=== PATIENT | male | born 1970 | race Caucasian/White ===

== ENCOUNTER 2016-07-22 19:21 | Observation (INO) | payer SELFPAY ==
[2016-07-22] MEDS ORDERED: ONDANSETRON 4 MG TAB.RAPDIS PO ONE (20:40)
--- NOTE | 2016-07-22 20:42 | ER Document Report ---
ED Medical Screen (RME) - General Chief Complaint: Abdominal Pain Stated Complaint: ABDOMINAL PAIN/GROIN PAIN Notes: 46-year-old male that comes emergency department for chief complaint of sharp pain in his mid abdomen to upper abdomen, started earlier today, states occasionally it radiates to his lower abdomen, denies nausea or vomiting, denies diarrhea, reports normal bowel movement prior to arrival. Occasional alcohol, no surgeries, no daily medications. No fever. TRAVEL OUTSIDE OF THE [place] IN LAST 30 DAYS: No - Related Data Allergies/Adverse Reactions: No Known Allergies Allergy (Verified 07/22/16 20:35) Past Medical History - Social History Chew tobacco use (# tins/day): No Frequency of alcohol use: Occasional Drug Abuse: None Renal/ Medical History: Denies: Hx Peritoneal Dialysis - Immunizations Hx Diphtheria, Pertussis, Tetanus Vaccination: Yes Physical Exam - Vital signs Vitals: Temp Pulse Resp BP Pulse Ox 98.6 F 92 18 97/66 L 97 07/22/16 20:29 07/22/16 20:29 07/22/16 20:29 07/22/16 20:29 07/22/16 20:29 - Abdominal Tenderness: Tender - Mild generalized tenderness, worse in the mid to upper abdomen/epigastric area Course - Vital Signs Vital signs: Temp Pulse Resp BP Pulse Ox 98.6 F 92 18 97/66 L 97 07/22/16 20:29 07/22/16 20:29 07/22/16 20:29 07/22/16 20:29 07/22/16 20:29
[2016-07-22 21:05] LABS: ABSOLUTE BASOPHILS # (AUTO) 0.1 10^3/uL (0.0-0.2); ABSOLUTE LYMPHOCYTES (AUTO) 0.8 10^3/uL (0.5-4.7); ABSOLUTE MONOCYTES (AUTO) 1.1 10^3/uL (0.1-1.4); ABSOLUTE NEUT (AUTO) 12.9 10^3/uL (1.7-8.2); BASOPHILS % (AUTO) 0.4 % (0-2); EOSINOPHILS % (AUTO) 0.1 % (0-6); HEMOGLOBIN 14.4 g/dL (13.5-17.0); HGB HCT DIFFERENCE 0.2; LYMPHOCYTES % (AUTO) 5.4 % (13-45); MEAN CORPUSCULAR HEMOGLOBIN 30.3 pg (27.0-33.4); MEAN CORPUSCULAR HGB CONC 33.4 g/dL (32.0-36.0); MEAN CORPUSCULAR VOLUME 91 fl (80-97); MONOCYTES % (AUTO) 7.1 % (3-13); RED BLOOD COUNT 4.75 10^6/uL (4.35-5.55); RED CELL DISTRIBUTION WIDTH 13.7 % (11.5-14.0); WHITE BLOOD COUNT 14.8 10^3/uL (4.0-10.5)
[2016-07-22 21:22] LABS: ALANINE AMINOTRANSFERASE 33 U/L (21-72); ALBUMIN 4.9 g/dL (3.5-5.0); ALKALINE PHOSPHATASE 59 U/L (38-126); ANION GAP 13 (5-19); ASPARTATE AMINO TRANSFERASE 23 U/L (17-59); BLOOD UREA NITROGEN 18 mg/dL (7-20); CALCIUM 10.1 mg/dL (8.4-10.2); CARBON DIOXIDE 22 mmol/L (22-30); CHLORIDE 105 mmol/L (98-107); CREATININE RESULT 0.87 mg/dL (0.52-1.25); GLUCOSE 117 mg/dL (75-110); LIPASE 49.4 U/L (23-300); POTASSIUM 4.4 mmol/L (3.6-5.0); SODIUM 139.9 mmol/L (137-145); TOTAL PROTEIN 7.4 g/dL (6.3-8.2)
[2016-07-22 21:35] LABS: APPEARANCE,URINE SLIGHTLY-CLOUDY; BILIRUBIN,URINE NEGATIVE (NEGATIVE); GLUCOSE, URINE NEGATIVE (NEGATIVE); KETONES,URINE 80 mg/dL (NEGATIVE); LEUKOCYTE ESTERASE,URINE NEGATIVE (NEGATIVE); NITRITE,URINE NEGATIVE (NEGATIVE); PROTEIN,URINE NEGATIVE (NEGATIVE); URINE SPECIFIC GRAVITY 1.029; UROBILINOGEN,URINE NEGATIVE mg/dL (<2.0)
[2016-07-23] MEDS ORDERED: FENTANYL CITRATE INJ/PF 100 MCG/2 ML AMPUL IV ONE ×2 (02:09→06:54)
[2016-07-23] MEDS ORDERED: NORMAL SALINE 1000 ML 1,000 ML IV ONE ×2 (02:09→07:03)
[2016-07-23] MEDS ORDERED: ONDANSETRON HCL INJ/PF 4 MG/2 ML SDV IV ONE (02:10)
--- NOTE | 2016-07-23 02:16 | ER Document Report ---
ED General - General Chief Complaint: Abdominal Pain Stated Complaint: ABDOMINAL PAIN/GROIN PAIN Notes: Patient is a 46 year male who presents with complaint of abdominal pain that started yesterday morning. He says the pain was mostly central, but now is in the right lower quadrant. Some nausea. No vomiting and no diarrhea. No history of abdominal surgeries. No other complaints this time. TRAVEL OUTSIDE OF THE [place] IN LAST 30 DAYS: No - Related Data Allergies/Adverse Reactions: No Known Allergies Allergy (Verified 07/22/16 20:35) Past Medical History - Social History Smoking Status: Current Every Day Smoker Chew tobacco use (# tins/day): No Frequency of alcohol use: Occasional Drug Abuse: None Family History: Reviewed & Not Pertinent Patient has suicidal ideation: No Patient has homicidal ideation: No Renal/ Medical History: Denies: Hx Peritoneal Dialysis - Immunizations Hx Diphtheria, Pertussis, Tetanus Vaccination: Yes Review of Systems - Review of Systems Notes: My Normal Review Basic REVIEW OF SYSTEMS: CONSTITUTIONAL : Denies fever, chills, or sweats. Denies recent illness. EENT: Denies eye, ear, throat, or mouth pain or symptoms. Denies nasal or sinus congestion. CARDIOVASCULAR: Denies chest pain. RESPIRATORY: Denies cough, cold, or chest congestion. Denies shortness of breath, difficulty breathing, or wheezing. GASTROINTESTINAL: Lower abdominal pain. Denies vomiting, or diarrhea. Denies constipation. GENITOURINARY: Denies difficulty urinating, painful urination, burning, frequency, or blood in urine. MUSCULOSKELETAL: Denies neck or back pain or joint pain or swelling. SKIN: Denies rash or skin lesions. NEUROLOGICAL: Denies altered mental status or loss of consciousness. Denies headache. Denies weakness or paralysis or loss of use of either side. Denies problems with gait or speech. Denies sensory or motor loss. ALL OTHER SYSTEMS REVIEWED AND NEGATIVE. Physical Exam - Vital signs Vitals: Temp Pulse Resp BP Pulse Ox 98.6 F 92 18 97/66 L 97 07/22/16 20:29 07/22/16 20:29 07/22/16 20:29 07/22/16 20:29 07/22/16 20:29 - Notes Notes: General Appearance: Well nourished, alert, cooperative, no acute distress, mild to moderate obvious discomfort. Vitals: reviewed, See vital signs table. Head: no swelling or tenderness to the head Eyes: PERRL, EOMI, Conjuctiva clear Mouth: No decreasd moisture Throat: No tonsillar inflammation, No airway obstruction, No lymphadenopathy Neck: Supple, no neck tenderness, No thyromegaly Lungs: No wheezing, No rales, No rhonci, No accessory muscle use, good air exchange bilaterally. Heart: Normal rate, Regular rythm, No murmur, no rub Abdomen: Normal BS, soft, No rigidity, moderate right lower quadrant abdominal tenderness to palpation, No guarding, no rebound, no abdominal masses, no organomegaly Genital: No swelling or tenderness to palpation of the genitalia. No palpable inguinal hernia. Extremities: strength 5/5 in all extremities, good pulses in all extremities, no swelling or tenderness in the extremities, no edema. Skin: warm, dry, appropriate color, no rash Neuro: speech clear, oriented x 3, normal affect, responds appropriately to questions. Course - Re-evaluation Re-evalutation: 07/23/16 03:36 CT scan does show evidence appendicitis. This would make sense with his clinical presentation. I have called Dr. العراقي, general surgeon. He is currently in surgery but will call me back as soon as he is out. Patient will be started an antibiotic. Patient's abdomen is still currently soft but tender in the right lower quadrant. No evidence of perforation per exam or scan. 07/23/16 05:09 Reevaluation patient continues to rest comfortably. His abnormalities be soft and nonrigid. He continues to have pain only in the right lower quadrant. 07/23/16 06:53 I did reevaluate the patient. He said he started to have a slight increase in pain. Will give a little more pain medicine. He otherwise looks well. His abdomen is soft. He still has some pain in the right lower quadrant. Remainder of abdomen is nontender. - Vital Signs Vital signs: Temp Pulse Resp BP Pulse Ox 98.6 F 55 L 17 111/58 L 95 07/22/16 20:29 07/23/16 04:20 07/23/16 07:38 07/23/16 07:38 07/23/16 07:38 - Laboratory Result Diagrams: 07/22/16 20:45 07/22/16 20:45 Laboratory results interpreted by me: 02/07/0707/22/16 07/22/16 20:45 20:45 20:45 WBC 14.8 H Seg Neutrophils % 87.0 H Lymphocytes % 5.4 L Absolute Neutrophils 12.9 H Glucose 117 H Urine Ketones 80 H - Transfer of Care Notes: 07/23/16 07:55 I can contact with Dr. Garay, general surgeon. He is in the morning general surgeon simulation engineer. He said he will come down and evaluate the patient. Patient was checked out to him by Dr. العراقي. Patient continues to do well without any further complaints at this time. Discharge - Discharge Clinical Impression: Appendicitis Qualifiers: Appendicitis type: acute appendicitis Acute appendicitis type: with localized peritonitis Qualified Code(s): K35.3 - Acute appendicitis with localized peritonitis Condition: Stable Disposition: ADMITTED INPATIENT Admitting Provider: Surgicalist Unit Admitted: OR
[2016-07-23] MEDS ORDERED: ERTAPENEM SODIUM INJ 1 GM VIAL IV ONE (03:35)
[2016-07-23] MEDS ORDERED: RINGERS SOLUTION,LACTATED 1,000 ML IV PRN ×2 (06:24→10:44)
[2016-07-23] MEDS ORDERED: BUPIVACAINE HCL 0.25 % INJ/PF (2.5 MG/1 ML) 30 ML VIAL ONE (08:19)
--- NOTE | 2016-07-23 08:20 | PDOC H&P ---
History of Present Illness History of Present Illness: PRAKASH YU is a 46 year old male In usual state of good health until yesterday morning when he experienced mid abdominal pain which localized to the right lower quadrant. Pain has progressively worsened. He denies any nausea or vomiting denies any prior history of this sort of pain. Denies any fevers or chills. He denies any recent the weight loss nor bowel habit changes nor blood per rectum. Past Medical History Medical History: None Past Surgical History Past Surgical History: Reports: None Social History Smoking Status: Current Every Day Smoker Frequency of Alcohol Use: Rare Family History Family History: Reviewed & Not Pertinent Parental Family History Reviewed: No Children Family History Reviewed: No Sibling(s) Family History Reviewed.: No Medication/Allergy Home Medications: No Home Medications 0 mg PO DAILY 10/22/11 Allergies/Adverse Reactions: No Known Allergies Allergy (Verified 07/22/16 20:35) Physical Exam Vital Signs: Temp Pulse Resp BP Pulse Ox 98.6 F 55 L 17 111/58 L 95 07/22/16 20:29 07/23/16 04:20 07/23/16 07:38 07/23/16 07:38 07/23/16 07:38 Intake & Output 07/22/16 07/23/16 07/24/16 06:59 06:59 06:59 Weight 73.5 kg General appearance: PRESENT: no acute distress Neck exam: PRESENT: other - Supple and nontender with no abnormal masses Respiratory exam: PRESENT: clear to auscultation corrie Cardiovascular exam: PRESENT: RRR GI/Abdominal exam: PRESENT: other - Soft, nondistended, focal tenderness to palpation the right lower quadrant with guarding and rebound Extremities exam: PRESENT: other - No swelling and no tenderness Neurological exam: PRESENT: alert, awake, oriented to person, oriented to place , oriented to time, oriented to situation Psychiatric exam: PRESENT: appropriate affect Skin exam: PRESENT: warm Results Laboratory Results: 07/22/16 20:45 07/22/16 20:45 07/22/16 07/22/16 07/22/16 20:45 20:45 20:45 WBC 14.8 H RBC 4.75 Hgb 14.4 Hct 43.0 MCV 91 MCH 30.3 MCHC 33.4 RDW 13.7 Plt Count 178 Seg Neutrophils % 87.0 H Lymphocytes % 5.4 L Monocytes % 7.1 Eosinophils % 0.1 Basophils % 0.4 Absolute Neutrophils 12.9 H Absolute Lymphocytes 0.8 Absolute Monocytes 1.1 Absolute Eosinophils 0.0 Absolute Basophils 0.1 Sodium 139.9 Potassium 4.4 Chloride 105 Carbon Dioxide 22 Anion Gap 13 BUN 18 Creatinine 0.87 Est GFR ( Amer) > 60 Est GFR (Non-Af Amer) > 60 Glucose 117 H Calcium 10.1 Total Bilirubin 1.0 AST 23 ALT 33 Alkaline Phosphatase 59 Total Protein 7.4 Albumin 4.9 Lipase 49.4 Urine Color YELLOW Urine Appearance SLIGHTLY-CLOUDY Urine pH 5.0 Ur Specific [place] 1.029 Urine Protein NEGATIVE Urine Glucose (UA) NEGATIVE Urine Ketones 80 H Urine Blood NEGATIVE Urine Nitrite NEGATIVE Ur Leukocyte Esterase NEGATIVE Urine WBC (Auto) 2 Urine RBC (Auto) 1 Impressions: Acute Abdomen Series 07/22/16 20:39 IMPRESSION: NO RADIOGRAPHIC EVIDENCE FOR ACUTE ABDOMINAL DISEASE. Abdomen/Pelvis CT 07/23/16 02:09 IMPRESSION: There is dilatation the appendix measuring 12.7 mm. There is thickening of the alberto of the appendix. The possibility of appendicitis should be considered. Clinical correlation is recommended. Other findings as noted above Assessment & Plan - Diagnosis (1) Mass of both adrenal glands Is this a current diagnosis for this admission?: YesPlan: Bilateral adrenal prominence on CT scan. Will obtain MRI of the his adrenal glands after he has recovered from his appendicitis. (2) Appendicitis Qualifiers: Appendicitis type: acute appendicitis Acute appendicitis type: with localized peritonitis Qualified Code(s): K35.3 - Acute appendicitis with localized peritonitis Is this a current diagnosis for this admission?: YesPlan: CT scan history and physical exam CONSISTENT with acute appendicitis. Plan laparoscopic appendectomy possible open appendectomy. I have discussed with the patient the risk and benefits of the procedure including risk of stump leak , mistaken diagnosis, adjacent organ injury, bleeding and infection. Patient understands and agrees to proceed.
[2016-07-23] MEDS ORDERED: FENTANYL CITRATE INJ/PF 250 MCG/5 ML AMPULE ONE (08:32)
[2016-07-23] MEDS ORDERED: PROPOFOL INJ 200 MG/20 ML VIAL IV ONE (08:33)
[2016-07-23] MEDS ORDERED: ACETAMINOPHEN 100 ML IV ONE (08:33)
[2016-07-23] MEDS ORDERED: HYDROMORPHONE HCL INJ/PF 2 MG/ML AMPULE ONE (08:33)
[2016-07-23] MEDS ORDERED: DEXMEDETOMIDINE INJ 80 MCG/20 ML VIAL IV ONE (08:33)
[2016-07-23] MEDS ORDERED: EPHEDRINE SULFATE INJ 50 MG/1 ML AMPULE ONE (08:33)
[2016-07-23] MEDS ORDERED: MIDAZOLAM 2 MG/2 ML INJ ONE (08:33)
[2016-07-23] MEDS ORDERED: MEPERIDINE HCL/PF INJ 25 MG/1 ML DISP.SYRIN IV PRN (08:42)
[2016-07-23] MEDS ORDERED: MORPHINE SULFATE 10 MG/ML INJ IV PRN ×2 (08:42→10:39)
[2016-07-23] MEDS ORDERED: ONDANSETRON HCL INJ/PF 4 MG/2 ML SDV IV PRN ×2 (08:42→10:39)
[2016-07-23] MEDS ORDERED: FENTANYL CITRATE INJ/PF 100 MCG/2 ML AMPUL IV PRN ×3 (08:42)
[2016-07-23] MEDS ORDERED: PROMETHAZINE HCL INJ 25 MG/1 ML VIAL IV PRN ×2 (08:42)
[2016-07-23] MEDS ORDERED: DIPHENHYDRAMINE HCL 50 MG/ML VIAL IV PRN (08:42)
--- NOTE | 2016-07-23 10:39 | Operative Report ---
Operative Report DATE OF SURGERY: 07/23/16 PREOPERATIVE DIAGNOSIS: Appendicitis POSTOPERATIVE DIAGNOSIS: Appendicitis OPERATION: Laparoscopic appendectomy SURGEON: NATALIA HIRSCH ANESTHESIA: GA TISSUE REMOVED OR ALTERED: Appendix COMPLICATIONS: None ESTIMATED BLOOD LOSS: minimal INTRAOPERATIVE FINDINGS: Inflamed appendix located in the retro-peritoneal location and the body and tip firmly adhered to the cecum. PROCEDURE: Informed consent was obtained. Patient was brought to the operating room and placed on the operating room table in supine position. After satisfactory induction of general anesthesia patient's abdomen was prepped and draped in the usual sterile fashion. A supraumbilical midline incision was made and dissection carried out through the fascia and the peritoneal cavity entered without difficulty. 5 mm trocar was placed in the right lateral abdomen lateral to the rectus above the level of the umbilicus. 5 mm trocar was placed in the left lower abdomen lateral to the rectus below the level of the umbilicus. Patient was placed in a Trendelenburg position with the right side up. The cecum was adhered to the lateral abdominal wall and the appendix was located in the retro-peritoneal location and it appeared to be firmly adhered to the adjacent cecum. The appendix appeared distended and inflamed. The peritoneum was sharply incised to reveal the appendix. The appendix was then teased off of the surrounding region using blunt dissection. A plane was created between the appendix and the meso appendix at its junction with the cecum. The appendix was taken flush with the cecum using a endo KRISTINA stapling device. Dissection was then performed toward the tip. The body and the tip of the appendix was firmly adhered to the cecum. The appendix was peeled off the cecum and inflammatory changes were noted. Great care was taken during this portion of the dissection to avoid injury to the cecum. The mesoappendix was taken with the LigaSure device. The appendix was placed in an Endobag and removed through the White trocar site fascial defect. The operative field was irrigated and irrigant aspirated out. Hemostasis appeared excellent. The stump closure appeared secure and there was no evidence of cecal injury. All trochars were removed under the direct vision of the laparoscope to ensure hemostasis. The White trocar site fascial defect was closed with interrupted Vicryl sutures. All skin incisions were closed with subcuticular interrupted Monocryl sutures. Marcaine was injected at the port sites. Patient tolerated procedure well with no apparent complications and was taken to the recovery area in stable condition.
[2016-07-23] MEDS ORDERED: METOCLOPRAMIDE HCL INJ/PF 10 MG/2 ML SDV ONE (14:16)
[2016-07-23] MEDS ORDERED: SUCCINYLCHOLINE CHLORIDE INJ 200 MG/10 ML VIAL ONE (14:16)
[2016-07-23] MEDS ORDERED: LIDOCAINE 2% INJ-PF (20 MG/ML) 10 ML AMPUL ONE (14:16)
[2016-07-23] MEDS ORDERED: ONDANSETRON HCL INJ/PF 4 MG/2 ML SDV ONE (14:16)
[2016-07-23] MEDS ORDERED: NEOSTIGMINE METHYLSULFATE 10 MG/10 ML VIAL ONE (14:16)
[2016-07-23] MEDS ORDERED: KETOROLAC TROMETHAMINE 60 MG/2 ML SDV ONE (14:16)
[2016-07-23] MEDS ORDERED: GLYCOPYRROLATE INJ 0.4 MG/2 ML VIAL ONE (14:16)
[2016-07-23] MEDS ORDERED: ROCURONIUM BROMIDE INJ 50 MG/5 ML VIAL IV ONE (14:16)
[2016-07-23] MEDS ORDERED: DEXAMETHASONE SOD PHOSPHATE INJ 4 MG/1 ML VIAL ONE (14:16)
--- NOTE | 2016-07-23 17:49 | PDOC PROGRESS REPORT ---
Subjective Progress Note for:: 07/23/16 Subjective:: Pain at the trocar sites otherwise feels okay. Physical Exam Vital Signs: Temp Pulse Resp BP Pulse Ox 98.8 F 56 L 20 100/52 L 93 07/23/16 17:00 07/23/16 17:00 07/23/16 17:00 07/23/16 17:00 07/23/16 17:00 Intake & Output 07/22/16 07/23/16 07/24/16 06:59 06:59 06:59 Intake Total 2600 Output Total 105 Balance 2495 Weight 75.7 kg General appearance: PRESENT: no acute distress Respiratory exam: PRESENT: clear to auscultation corrie Cardiovascular exam: PRESENT: RRR GI/Abdominal exam: PRESENT: other - Off, nondistended, tenderness especially at the left lower quadrant trocar site with no erythema and no drainage. Diffuse tenderness in the lower abdomen without peritoneal signs. Musculoskeletal exam: PRESENT: other - No swelling Results Impressions: Acute Abdomen Series 07/22/16 20:39 IMPRESSION: NO RADIOGRAPHIC EVIDENCE FOR ACUTE ABDOMINAL DISEASE. Abdomen/Pelvis CT 07/23/16 02:09 IMPRESSION: There is dilatation the appendix measuring 12.7 mm. There is thickening of the alberto of the appendix. The possibility of appendicitis should be considered. Clinical correlation is recommended. Other findings as noted above Assessment & Plan - Diagnosis (1) Mass of both adrenal glands Is this a current diagnosis for this admission?: Yes (2) Appendicitis Qualifiers: Appendicitis type: acute appendicitis Acute appendicitis type: with localized peritonitis Qualified Code(s): K35.3 - Acute appendicitis with localized peritonitis Is this a current diagnosis for this admission?: YesPlan: Status post laparoscopic appendectomy. Trocar site pain and some postoperative pain but otherwise looks okay. Will discharge the patient home tomorrow once his pain has improved. Encourage ambulation.
[2016-07-23] MEDS: OXYCODONE-ACETAMINOPHEN 5-325 MG TABLET PO PRN (19:45)
[2016-07-24] MEDS: OXYCODONE-ACETAMINOPHEN 5-325 MG TABLET PO PRN (07:47)
--- NOTE | 2016-07-24 13:38 | PDOC DISCHARGE SUMMARY ---
General - Admit/Disc Date/PCP Admission Date/Primary Care Provider: 07/23/16 10:39 Discharge Date: 07/24/16 - Additional Information Resuscitation Status: Full Code Discharge Diet: Regular Discharge Activity: No Lifting Over 10 Pounds, Walk Frequently Home Medications: No Home Medications 0 mg PO DAILY 10/22/11 Oxycodone HCl/Acetaminophen [Percocet 5-325 mg Tablet] 1 tab PO Q3HP PRN #14 tablet 07/24/16 History of Present Illness History of Present Illness: PRAKASH YU is a 46 year old male otherwise healthy male who the day prior to admission developed right lower quadrant pain. The pain was progressive. He presented to the emergency room. His white count was elevated at 14.8. CT scan was done which showed acute appendicitis as well as bilateral enlarged adrenal glands. Hospital Course Hospital Course: Patient was admitted on 07/23/2016 and diagnosed with acute appendicitis. He was taken to the operative suite where laparoscopic appendectomy was performed. Please see operative report for details. Patient was admitted to the floor postoperatively and managed with gradual diet advancement, IV fluids, SCDs, ambulation, incentive spirometry. The patient did well. Postop day 1 he was passing gas, tolerating a diet, urinating and ambulating without difficulty. He was discharged home on postop day 1, 07/24/2016. Physical Exam Vital Signs: Temp Pulse Resp BP Pulse Ox 97.8 F 55 L 18 101/56 L 100 07/24/16 11:44 07/24/16 11:44 07/24/16 11:44 07/24/16 11:44 07/24/16 11:44 Intake & Output 07/23/16 07/24/16 07/25/16 06:59 06:59 06:59 Intake Total 3600 Output Total 105 Balance 3495 Weight 75.4 kg General appearance: PRESENT: no acute distress Head exam: PRESENT: normocephalic Eye exam: PRESENT: EOMI, other - Glasses Mouth exam: PRESENT: tongue midline Respiratory exam: PRESENT: unlabored GI/Abdominal exam: PRESENT: soft, tenderness - Appropriately tender., other - Incisions clean dry and intact with Steri-Strips. ABSENT: distended, guarding, rebound Musculoskeletal exam: PRESENT: ambulatory Neurological exam: PRESENT: alert, oriented to situation Psychiatric exam: PRESENT: appropriate affect, normal mood Skin exam: ABSENT: jaundice, rash Results Impressions: Acute Abdomen Series 07/22/16 20:39 IMPRESSION: NO RADIOGRAPHIC EVIDENCE FOR ACUTE ABDOMINAL DISEASE. Abdomen/Pelvis CT 07/23/16 02:09 IMPRESSION: There is dilatation the appendix measuring 12.7 mm. There is thickening of the alberto of the appendix. The possibility of appendicitis should be considered. Clinical correlation is recommended. Other findings as noted above Plan Discharge Plan: Deep breathe and cough. Walk frequently. No lifting over 10 pounds for 2 weeks. Regular diet. No driving while on narcotics. Take stool softener while on narcotics to prevent constipation. Shower daily starting on the morning of 07/25/2016. No tub/baths/pool for 2 weeks. Follow-up with Dr. [facility] in [address] Garay about an MRI scan for your enlarged adrenal glands at that time.
[2016-07-24 14:20] VITALS: BP 98/53
== END 2016-07-24 14:45 | disposition home or self-care (01) ==
LOC: ER 19:21 → UNDOADMOB 07-23 08:32 → EH 07-23 08:32 → INTOOBSV 07-23 08:32 → EH 07-23 10:39 → 4N 07-23 11:58
PROC: 0DTJ4ZZ Resection of Appendix, Percutaneous Endoscopic Approach (ICD-10-PCS; principal; 2016-07-23 08:30)
DX: K35.80 Unspecified acute appendicitis (principal); E27.9 Disorder of adrenal gland, unspecified; F17.210 Nicotine dependence, cigarettes, uncomplicated
CPT/HCPCS: 99285; 96360; 96361; 96374; 96375; 36415; 83690; 85025; 80053; 81001; 88304 ×2; 74022; 74177; 44970; G0378 ×3; J2250; J3490 ×5; J1100; J1885; S0119; J3010 ×2; J2765; J2270; J0330; J2405; J7030; J2704; J0131; 840; J1170

== ENCOUNTER → 2016-08-10 | Outpatient (CLI) | payer OTHER | LOC: RAD 16:30 | PROVIDERS: ATTEND Surgery | DX: E27.8 Other specified disorders of adrenal gland (principal) | CPT/HCPCS: 74183; A9576 ==

== ENCOUNTER → 2016-09-26 | Outpatient (CLI) | payer OTHER ==
[2016-09-29 14:51] LABS: ADRENOCORTICOTROPIC HORMONE 9.4 pg/mL (7.2-63.3)
== END ==
LOC: LAB 08:46
PROVIDERS: ATTEND Internal Medicine Endocrinology, Diabetes & Metabolism
DX: D35.01 Benign neoplasm of right adrenal gland (principal); D35.02 Benign neoplasm of left adrenal gland
CPT/HCPCS: 36415; 82024; 82382; 82530; 82533; 82570; 82626

== ENCOUNTER → 2016-10-12 | Outpatient (CLI) | payer OTHER | LOC: LAB 08:21 | PROVIDERS: ATTEND Internal Medicine Endocrinology, Diabetes & Metabolism | DX: D35.00 Benign neoplasm of unspecified adrenal gland (principal) | CPT/HCPCS: 36415; 82533 ==

== ENCOUNTER → 2016-11-07 | Outpatient (CLI) | payer OTHER | LOC: LAB 07:23 | PROVIDERS: ATTEND Internal Medicine Endocrinology, Diabetes & Metabolism | DX: D35.00 Benign neoplasm of unspecified adrenal gland (principal) | CPT/HCPCS: 36415; 82533 ==

== ENCOUNTER → 2016-11-14 | Outpatient (CLI) | payer OTHER | LOC: LAB 07:44 | PROVIDERS: ATTEND Internal Medicine Endocrinology, Diabetes & Metabolism | DX: D35.00 Benign neoplasm of unspecified adrenal gland (principal) | CPT/HCPCS: 36415 ==

== ENCOUNTER → 2016-12-09 | Outpatient (CLI) | payer OTHER ==
--- NOTE | 2016-12-09 10:50 | RADIOLOGY REPORT (SQ) ---
EXAM DESCRIPTION: CT ABD/PELVIS COMBO COMPLETED DATE/TIME: 12/09/2016 8:42 am REASON FOR STUDY: ADRENAL NODULE E27.9 DISORDER OF ADRENAL GLAND, UNSPECIFIED COMPARISON: None. TECHNIQUE: CT scan of the abdomen and pelvis performed with and without intravenous contrast, and wi thout oral contrast. Contrasted imaging performed helical scanning technique and dynamic intravenous contrast injection. Images reviewed with lung, soft tissue, and bone windows. Reconstructed coronal a nd sagittal MPR images reviewed. Delayed images for evaluation of the urinary system also acquired. A ll images stored on PACS. All CT scanners at this facility use dose modulation, iterative reconstruction, and/or weight based d osing when appropriate to reduce radiation dose to as low as reasonably achievable (ALARA). [facility]: Dose Right [facility]: CareDose [facility]: Dose Right [facility]: Teradose 4D [facility]: fluid Operations CONTRAST TYPE AND DOSE: contrast/concentration: Isovue 370 mg/ml; Total Contrast Delivered: 80.0 ml; Total Saline Delivered: 158.0 ml RENAL FUNCTION: Creatinine 0.8 RADIATION DOSE: Up-to-date CT equipment and radiation dose reduction techniques were employed. CTDIv ol: 11.2 - 42.2 mGy. DLP: 2597 mGy-cm. . LIMITATIONS: None. FINDINGS: NON-CONTRASTED IMAGING: There are fat density lesions in both adrenal glands, larger on th e right than the left. The lesion on the right measures 28 x 20 mm. Lesion on left measures 18 x 27 mm. There are no renal calcifications or other significant calcifications. POST-CONTRASTED IMAGING: LOWER CHEST: No significant findings. No nodules or infiltrates. LIVER: Normal size. No masses or dilated ducts. SPLEEN: Normal size. No focal lesions. PANCREAS: No masses. No significant calcifications. No adjacent inflammation or peripancreatic fluid collections. Pancreatic duct not dilated. GALLBLADDER: No identified stones by CT criteria. No inflammatory changes to suggest cholecystitis. ADRENAL GLANDS: Fat density adrenal lesions as described above. There is mild enhancement and rapid washout. RIGHT KIDNEY AND URETER: No solid masses. No significant calcifications. No hydronephrosis or hyd roureter. LEFT KIDNEY AND URETER: No solid masses. No significant calcifications. No hydronephrosis or hydr oureter. AORTA AND VESSELS: No aneurysm. No dissection. Renal arteries, SMA, celiac without stenosis. RETROPERITONEUM: No retroperitoneal adenopathy, hemorrhage or masses. BOWEL AND PERITONEAL CAVITY: No masses or inflammatory changes. No free fluid or peritoneal masses. APPENDIX: Surgically absent. PELVIS: Urinary bladder is normal. The prostate gland and seminal vesicles are unremarkable. ABDOMINAL WALL: No masses. No hernias. BONES: No significant or acute findings. OTHER: No other significant finding. IMPRESSION: There are bilateral adrenal adenomas. TECHNICAL DOCUMENTATION: JOB ID: [id number] Quality ID # [id number]: Final reports with documentation of one or more dose reduction techniques (e.g., Au tomated exposure control, adjustment of the mA and/or kV according to patient size, use of iterative reconstruction technique) 2010 [email or web address]- All Rights Reserved
== END ==
LOC: RAD 07:56
PROVIDERS: ATTEND Internal Medicine Endocrinology, Diabetes & Metabolism
DX: E27.9 Disorder of adrenal gland, unspecified (principal)
CPT/HCPCS: 74178; 82565

== ENCOUNTER 2017-03-03 19:58 | Emergency (ER) | payer OTHER ==
[2017-03-03] MEDS ORDERED: NORMAL SALINE 1000 ML 1,000 ML IV ONE (20:26)
[2017-03-03] MEDS ORDERED: ASPIRIN 325 MG TABLET PO ONE (20:27)
--- NOTE | 2017-03-03 20:28 | ER Document Report ---
ED Medical Screen (RME) - General Chief Complaint: Dizziness Stated Complaint: CHEST PAIN Time Seen by Provider: 03/03/17 20:26 Mode of Arrival: Wheelchair Information source: Patient, Friend TRAVEL OUTSIDE OF THE [place] IN LAST 30 DAYS: No - HPI Patient complains to provider of: CP; dizziness Onset: This morning - pt with c/o CP and dizziness starting earlier this am. He has been working outside today adn feels he may be dehydrated - Related Data Allergies/Adverse Reactions: No Known Allergies Allergy (Verified 07/22/16 20:35) Past Medical History Renal/ Medical History: Denies: Hx Peritoneal Dialysis - Immunizations Hx Diphtheria, Pertussis, Tetanus Vaccination: Yes
[2017-03-03 21:11] LABS: ABSOLUTE BASOPHILS # (AUTO) 0.1 10^3/uL (0.0-0.2); ABSOLUTE LYMPHOCYTES (AUTO) 2.5 10^3/uL (0.5-4.7); ABSOLUTE MONOCYTES (AUTO) 0.4 10^3/uL (0.1-1.4); ABSOLUTE NEUT (AUTO) 4.4 10^3/uL (1.7-8.2); BASOPHILS % (AUTO) 0.7 % (0-2); EOSINOPHILS % (AUTO) 0.5 % (0-6); HEMATOCRIT 45.4 % (37.9-51.0); HEMOGLOBIN 15.9 g/dL (13.5-17.0); HGB HCT DIFFERENCE 2.3; MEAN CORPUSCULAR HEMOGLOBIN 31.9 pg (27.0-33.4); MEAN CORPUSCULAR HGB CONC 34.9 g/dL (32.0-36.0); MEAN CORPUSCULAR VOLUME 92 fl (80-97); RED BLOOD COUNT 4.96 10^6/uL (4.35-5.55); RED CELL DISTRIBUTION WIDTH 13.8 % (11.5-14.0); SEGMENTED NEUTROPHILS % (AUTO) 59.8 % (42-78); WHITE BLOOD COUNT 7.4 10^3/uL (4.0-10.5)
[2017-03-03 21:25] LABS: ALANINE AMINOTRANSFERASE 27 U/L (21-72); ALBUMIN 5.4 g/dL (3.5-5.0); ALKALINE PHOSPHATASE 60 U/L (38-126); ANION GAP 17 (5-19); ASPARTATE AMINO TRANSFERASE 39 U/L (17-59); BILIRUBIN,DIRECT 0.5 mg/dL (0.0-0.4); BILIRUBIN,TOTAL 0.8 mg/dL (0.2-1.3); BLOOD UREA NITROGEN 16 mg/dL (7-20); CALCIUM 10.7 mg/dL (8.4-10.2); CARBON DIOXIDE 25 mmol/L (22-30); CHLORIDE 102 mmol/L (98-107); CREATINE KINASE 255 U/L (55-170); CREATININE RESULT 1.04 mg/dL (0.52-1.25); GLUCOSE 115 mg/dL (75-110); POTASSIUM 3.8 mmol/L (3.6-5.0); SODIUM 144.4 mmol/L (137-145); TOTAL PROTEIN 8.2 g/dL (6.3-8.2)
[2017-03-03 21:40] LABS: CREATINE KINASE MB 1.68 ng/mL (<4.55)
[2017-03-03 21:41] LABS: TROPONIN I < 0.012 ng/mL
--- NOTE | 2017-03-03 21:53 | RADIOLOGY REPORT (SQ) ---
EXAM DESCRIPTION: CHEST PA/LAT COMPLETED DATE/TIME: 03/03/2017 9:33 pm REASON FOR STUDY: TACHYPNEA AND BACK PAIN COMPARISON: 07/22/2016 EXAM PARAMETERS: NUMBER OF VIEWS: two views TECHNIQUE: Digital Frontal and Lateral radiographic views of the chest acquired. RADIATION DOSE: NA LIMITATIONS: none FINDINGS: LUNGS AND PLEURA: No opacities, masses or pneumothorax. No pleural effusion. MEDIASTINUM AND HILAR STRUCTURES: No masses or contour abnormalities. HEART AND VASCULAR STRUCTURES: Heart normal size. No evidence for failure. BONES: No acute findings. HARDWARE: None in the chest. OTHER: No other significant finding. IMPRESSION: NO SIGNIFICANT RADIOGRAPHIC FINDING IN THE CHEST. TECHNICAL DOCUMENTATION: JOB ID: [id number] [email or web address]- All Rights Reserved
--- NOTE | 2017-03-03 22:43 | ER Document Report ---
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 Patient chest tightness. He denies any shortness of breath, nausea, vomiting, history of heart attack or stroke. He does smoke. Patient states "I just felt dehydrated. " TRAVEL OUTSIDE OF THE [place] IN LAST 30 DAYS: No - Related Data Allergies/Adverse Reactions: No Known Allergies Allergy (Verified 07/22/16 20:35) Past Medical History - General Information source: Patient, Friend - Social History Smoking Status: Current Every Day Smoker Frequency of alcohol use: Occasional Drug Abuse: None Family History: Reviewed & Not Pertinent Patient has suicidal ideation: No Patient has homicidal ideation: No Renal/ Medical History: Denies: Hx Peritoneal Dialysis - Immunizations Hx Diphtheria, Pertussis, Tetanus Vaccination: Yes Review of Systems - Review of Systems Constitutional: See HPI EENT: No symptoms reported Cardiovascular: No symptoms reported Respiratory: No symptoms reported Gastrointestinal: No symptoms reported Genitourinary: No symptoms reported Male Genitourinary: No symptoms reported Musculoskeletal: No symptoms reported Skin: No symptoms reported Hematologic/Lymphatic: No symptoms reported Neurological/Psychological: See HPI Physical Exam - Notes Notes: PHYSICAL EXAMINATION: GENERAL: Well-appearing and in no acute distress. HEAD: Atraumatic, normocephalic. EYES: Pupils equal round and reactive to light, extraocular movements intact, sclera anicteric, conjunctiva are normal. ENT: ear canals without erythema or foreign body, TMs pearly ramirez with good bony landmarks, nares patent, oropharynx clear without exudates. Moist mucous membranes. NECK: Normal range of motion, supple without lymphadenopathy LUNGS: CTAB and equal. No wheezes rales or rhonchi. HEART: Regular rate and rhythm without murmurs ABDOMEN: Soft, no tenderness. No guarding, no rebound BACK: no vertebral tenderness, normal ROM GI/: no CVA tenderness EXTREMITIES: Normal range of motion, no pitting edema. No cyanosis. NEUROLOGICAL: Cranial nerves grossly intact. Normal sensory/motor exams. PSYCH: Normal mood, normal affect. SKIN: Warm, Dry, normal turgor, no rashes or lesions noted Course - Re-evaluation Re-evalutation: 03/03/17 22:42 Labwork is unremarkable including cardiac enzymes are normal, normal EKG and sinus rhythm, normal chest x-ray without acute pathology. Patient feels "100%" better after IV fluids. Patient wants to go home and I see no reason that he cannot safely be discharged home at this time. - Laboratory Result Diagrams: 03/03/17 20:45 03/03/17 20:45 Laboratory results interpreted by me: 03/03/17 20:45 Glucose 115 H Calcium 10.7 H Direct Bilirubin 0.5 H Creatine Kinase 255 H Albumin 5.4 H Discharge - Discharge Clinical Impression: Dizziness Chest pain Qualifiers: Chest pain type: unspecified Qualified Code(s): R07.9 - Chest pain, unspecified Condition: Stable Disposition: HOME, SELF-CARE Additional Instructions: Return immediately for any new or worsening symptoms. Follow up with primary care provider, call tomorrow to make followup appointment. Drink plenty of fluids.
[2017-03-03 22:51] VITALS: BP 110/72
== END 2017-03-03 22:50 | disposition home or self-care (01) ==
LOC: ER 19:58
DX: R42 Dizziness and giddiness (principal); R07.9 Chest pain, unspecified; F17.200 Nicotine dependence, unspecified, uncomplicated
CPT/HCPCS: 99285; 96360; 36415; 82553; 82550; 85025; 80053; 84484; 71020; J7030

== ENCOUNTER 2017-06-22 19:09 | Emergency (ER) | payer OTHER ==
[2017-06-22 19:23] VITALS: BP 122/56
--- NOTE | 2017-06-22 21:24 | ER Document Report ---
ED General - General Chief Complaint: Ankle Pain Stated Complaint: ANKLE PAIN Time Seen by Provider: 06/22/17 21:23 TRAVEL OUTSIDE OF THE [place] IN LAST 30 DAYS: No - HPI Notes: 46-year-old male presents today with complaints of left ankle pain after tripping and falling x 1 day ago.denies head trauma or change in loc. pain 5/10 , achy. unable to bear full weight. nothing makes better, ambulation makes worse. pain is progressive and constant. Denies any n/t in ankle. denies any otc medications. tried some icing. resting makes better, worse with movement of leg. Denies any cp, sob, n/v/d, abd pain, dysuria and hematuria. - Related Data Allergies/Adverse Reactions: No Known Allergies Allergy (Verified 06/22/17 19:12) Past Medical History - General Information source: Patient - Social History Smoking Status: Current Every Day Smoker Frequency of alcohol use: Rare Drug Abuse: None Family History: Reviewed & Not Pertinent Patient has suicidal ideation: No Patient has homicidal ideation: No Renal/ Medical History: Denies: Hx Peritoneal Dialysis Past Surgical History: Reports: Hx Appendectomy - Immunizations Hx Diphtheria, Pertussis, Tetanus Vaccination: Yes Review of Systems - Review of Systems Constitutional: No symptoms reported EENT: No symptoms reported Cardiovascular: No symptoms reported Respiratory: No symptoms reported Gastrointestinal: No symptoms reported Genitourinary: No symptoms reported Male Genitourinary: No symptoms reported Musculoskeletal: See HPI, Ankle swelling Skin: No symptoms reported Hematologic/Lymphatic: No symptoms reported Neurological/Psychological: No symptoms reported Physical Exam - Vital signs Vitals: Temp Pulse Resp BP Pulse Ox 98.8 F 81 20 122/56 L 97 06/22/17 19:21 06/22/17 19:21 06/22/17 19:21 06/22/17 19:21 06/22/17 19:21 - Notes Notes: PHYSICAL EXAMINATION: GENERAL: Well-appearing, well-nourished and in no acute distress. HEAD: Atraumatic, normocephalic. EYES: Pupils equal round and reactive to light, extraocular movements intact, sclera anicteric, conjunctiva are normal. ENT: Nares patent, oropharynx clear without exudates. Moist mucous membranes. NECK: Normal range of motion, supple without lymphadenopathy LUNGS: Breath sounds clear to auscultation bilaterally and equal. No wheezes rales or rhonchi. HEART: Regular rate and rhythm without murmurs ABDOMEN: Soft, nontender, nondistended abdomen. No guarding, no rebound. No masses appreciated. Musculoskeletal: Normal range of motion, no pitting or edema. No cyanosis. left ankle with swelling, tenderness on lateral aspect of ankle. pain with inversion. squeeze test negative. dtr +2 BLE. Limited APROM. distal pulses + 2 BLE equally. Full motor and sensory function of bilateral lower extremities. No noted open wounds or abrasion. Normal gait. No vascular compromise NEUROLOGICAL: Cranial nerves grossly intact. Normal speech, normal gait. Normal sensory, motor exams PSYCH: Normal mood, normal affect. SKIN: Warm, Dry, normal turgor, no rashes or lesions noted. Course - Re-evaluation Re-evalutation: Rechecked the patient who is resting comfortably. On re-exam, patient is symptomatically improved. Discussed the results of the radiology as well as the diagnosis at great length, no fracture of ankle Discussed the need to return to the ER for any new or worsening sx. Patient understands to take the Rx as directed. All questions answered. Patient comfortable with the decision to go home. xray neg for fracture, noted STS 06/22/17 22:16 06/22/17 22:19 - Vital Signs Vital signs: Temp Pulse Resp BP Pulse Ox 98.8 F 81 20 122/56 L 97 06/22/17 19:21 06/22/17 19:21 06/22/17 19:21 06/22/17 19:21 06/22/17 19:21 Discharge - Discharge Clinical Impression: Left ankle sprain Qualifiers: Encounter type: initial encounter Involved ligament of ankle: unspecified ligament Qualified Code(s): S93.402A - Sprain of unspecified ligament of left ankle, initial encounter Disposition: HOME, SELF-CARE Instructions: Sprained Ankle (OM), Ankle Stirrup Splint ([facility]) Additional Instructions: Rice therapy. Follow-up with orthopedic specialists within 1 week. Use Aircast and crutches as directed. Apply ice and then switch to heat 20 minutes on 20 minutes off several times a day. Elevate. Take ibuprofen and Tylenol as needed for pain.D/C: advised to return to the ER if any signs or symptoms became worse. Take [id number] Motrin and Tylenol as needed for any fevers or pain. Follow up with primary care within 1-2 days. All questions and concerns answered by this provider . Patient/family states would follow plan of care and agreed to plan of care. Patient was discharged home and off unit without incident. Please excuse any errors in this document was done by dragon dictation. Referrals: KELSEA VERDUGO MD [ACTIVE STAFF] - Follow up as needed
--- NOTE | 2017-06-22 22:07 | RADIOLOGY REPORT (SQ) ---
EXAM DESCRIPTION: ANKLE LEFT COMPLETE COMPLETED DATE/TIME: 06/22/2017 9:54 pm REASON FOR STUDY: s/p fall, +pain laterally. noted ecchymosis COMPARISON: None. NUMBER OF VIEWS: Three views. TECHNIQUE: AP, lateral, and oblique radiographic images acquired of the left ankle. LIMITATIONS: None. FINDINGS: MINERALIZATION: Normal. BONES: No acute fracture or dislocation. No worrisome bone lesions. JOINTS: There is a tibiotalar joint effusion. No disruption of the ankle mortise. SOFT TISSUES: Lateral soft tissue swelling. No radiopaque foreign body OTHER: No other significant finding. IMPRESSION: Ankle joint effusion and lateral soft tissue swelling. No acute fracture. No disruption of the ankle mortise TECHNICAL DOCUMENTATION: JOB ID: [id number] [employer]- All Rights Reserved
== END 2017-06-22 22:44 | disposition home or self-care (01) ==
LOC: ER 19:09
DX: S93.402A Sprain of unspecified ligament of left ankle, initial encounter (principal); W01.0XXA Fall on same level from slipping, tripping and stumbling without subsequent striking against object, initial encounter; F17.200 Nicotine dependence, unspecified, uncomplicated
CPT/HCPCS: 99283